=== PATIENT | female | born 1985 | race Caucasian/White ===

== ENCOUNTER 2019-12-28 22:07 | Emergency (ER) | payer BC ==
[~2019-12-28] VITALS: Ht 165.1 cm; Wt 77.1 kg
[2019-12-28 22:14] VITALS: Ht 165.1 cm; Wt 77.1 kg
[2019-12-28 23:28] VITALS: BP 141/76
== END 2019-12-28 23:28 | disposition home or self-care (01) ==
LOC: ED 22:07
DX: T78.40XA Allergy, unspecified, initial encounter (principal); X58.XXXA Exposure to other specified factors, initial encounter
CPT/HCPCS: J1100; Q0163